=== PATIENT | male | born 1960 | race Caucasian/White ===

== ENCOUNTER 2018-12-27 14:33 | Emergency (ER) | payer MEDICAID ==
[2018-12-27] MEDS: KETOROLAC TROMETHAMINE 30 MG/ML SOL IM ONE (14:45)
[2018-12-27] MEDS ORDERED: KETOROLAC TROMETHAMINE 30 MG/ML SOL ONE (14:55)
[2018-12-27 15:27] VITALS: TEMP 97.9
[2018-12-27 15:38] VITALS: RESP 18
[2018-12-27] MEDS: ONDANSETRON HCL 4 MG/2 ML SOL IV ONE (15:41)
[2018-12-27] MEDS ORDERED: HYDROMORPHONE 1 MG/ML SYRINGE ONE (15:46)
[2018-12-27] MEDS ORDERED: ONDANSETRON HCL 4 MG/2 ML SOL ONE (15:46)
[2018-12-27] MEDS: HYDROMORPHONE HCL 2 MG/ML SOL IV ONE (15:53)
[2018-12-27] MEDS: SODIUM CHLORIDE 0.9% 1000ML 1,000 ML IV ONE (16:04)
[2018-12-27 16:15] VITALS: BP 114/80; PULSE 74; O2SAT 93
[2018-12-27 16:49] LABS: HEMATOCRIT 36 % (39-53); HEMOGLOBIN 11.3 gm/dl (13.5-17.7); MEAN CORPUSCULAR HEMOGLOBIN 31.2 pg (27.0-32.0); MEAN CORPUSCULAR HGB CONC 31.4 gm/dl (32.0-36.0)
[2018-12-27 16:50] LABS: MEAN CORPUSCULAR VOLUME 100 fL (80-100)
[2018-12-27 16:57] LABS: INR 1.08 (0.87-1.13)
[2018-12-27 16:59] LABS: ALBUMIN 3.3 gm/dl (3.4-5.0); BILIRUBIN,TOTAL 0.8 mg/dl (0.2-1.0); CALCIUM 9.1 mg/dl (8.5-10.1); CARBON DIOXIDE 28.9 mEq/L (21-32); CREATININE 0.81 mg/dl (0.80-1.30); TOTAL PROTEIN 7.5 gm/dl (6.4-8.2)
[2018-12-27 17:22] LABS: BAND NEUTROPHILS % (MANUAL) 16 %; BASOPHILS % (MANUAL) 0 % (0-3); EOSINOPHILS % (MANUAL) 3 % (0-9); LYMPHOCYTES % (MANUAL) 13 % (10-50); MONOCYTES % (MANUAL) 7 % (0-12); NEUTROPHILS % (MANUAL) 61 % (37-80); NORMAL RBCS PRESENT
== END 2018-12-27 17:01 | disposition short-term general hospital (02) | DRG 536 ==
LOC: ED 14:33
DX: S72.002A Fracture of unspecified part of neck of left femur, initial encounter for closed fracture (principal); W18.40XA Slipping, tripping and stumbling without falling, unspecified, initial encounter; M24.9 Joint derangement, unspecified; M25.511 Pain in right shoulder
CPT/HCPCS: 73030; 73502; 80053; 85007; 85027; 85610; 85730; 96365; 96372; 96374; 96375; 99284; 99285; J1885; J2405; J1170